=== PATIENT | female | born 1935 | race Caucasian/White ===

== ENCOUNTER → 2018-06-11 | Outpatient (CLI) | payer MEDICARE, OTHER | END | disposition home or self-care (01) | LOC: RADPV 12:06 | PROVIDERS: ATTEND Legal Medicine | DX: J18.9 Pneumonia, unspecified organism (principal); I70.0 Atherosclerosis of aorta; M25.561 Pain in right knee ==

== ENCOUNTER → 2018-07-23 | Outpatient (CLI) | payer MEDICARE, OTHER | END | disposition home or self-care (01) | LOC: RADPV 12:10 | PROVIDERS: ATTEND Legal Medicine | DX: I73.9 Peripheral vascular disease, unspecified (principal); M79.9 Soft tissue disorder, unspecified | CPT/HCPCS: 93925; 93970 ==

== ENCOUNTER 2019-01-24 10:40 | Emergency (ER) | payer MEDICARE, OTHER ==
[~2019-01-24] VITALS: Ht 152.4 cm; Wt 70.5 kg
[~2019-01-24 10:40] MED LIST: ALEN70TA10 PO; ASPI-1182 PO; DULO20CA30 PO; FURO20 PO; GABA-529 PO; KDUR10 PO; LOSA25TA41 PO; MACR100 PO; PRAV40TA4 PO; RANI150T7 PO; SIME125C81 PO
[2019-01-24] MEDS ORDERED: 0.9% SODIUM CHLORIDE 10 ML SYRINGE IVP PRN (11:30)
[2019-01-24] MEDS ORDERED: DOXYCYCLINE HYCLATE 100 MG in DEXTROSE 5%-WATER 100 ML IV ONE (11:45)
[2019-01-24 11:47] LABS: BASOPHILS % (AUTO) 0.9 % (0.0-2.0); EOSINOPHILS % (AUTO) 1.4 % (1.0-6.0); HEMATOCRIT 36.1 % (36-46); HEMOGLOBIN 11.8 g/dL (12.0-16.0); LYMPHOCYTES # (AUTO) 1.9 K/uL (1.0-4.8); LYMPHOCYTES % (AUTO) 30.8 % (22.0-44.0); MEAN CORPUSCULAR HEMOGLOBIN 31.6 pg (26.0-34.0); MEAN CORPUSCULAR HGB CONC 32.6 G/dL (31.0-37.0); MEAN CORPUSCULAR VOLUME 97 fL (80-100); MONOCYTES # (AUTO) 0.8 K/uL (0.1-1.0); MONOCYTES % (AUTO) 13.2 % (2.0-9.0); NEUTROPHILS # (AUTO) 3.4 K/uL (1.8-7.7); NEUTROPHILS % (AUTO) 53.7 % (40.0-70.0); PLATELET COUNT (AUTO) 261 K/uL (150-450); RED BLOOD CELL COUNT(AUTO) 3.72 MIL/uL (4.00-5.20); RED CELL DISTRIBUTION WIDTH 14.4 % (11.5-14.5)
[2019-01-24 11:56] LABS: APPEARANCE,URINE CLEAR (CLEAR); BILIRUBIN,URINE NEGATIVE (NEGATIVE); GLUCOSE, URINE (UA) NEGATIVE (NEGATIVE); KETONES,URINE NEGATIVE (NEGATIVE); LEUKOCYTE ESTERASE ,URINE NEGATIVE (NEGATIVE); NITRATE,URINE NEGATIVE (NEGATIVE); OCCULT BLOOD,URINE NEGATIVE (NEGATIVE); PROTEIN,URINE NEGATIVE (NEGATIVE); UROBILINOGEN,URINE 0.2 mg/dL (<=1.0)
[2019-01-24 12:02] LABS: PROTHROMBIN TIME 10.3 SEC (9.4-11.6)
[2019-01-24 12:15] LABS: CALCIUM, TOTAL 8.6 mg/dL (8.8-10.5); CREATININE 1.22 mg/dL (0.60-1.30); POTASSIUM 3.3 mmol/L (3.5-5.1)
[2019-01-24 12:19] LABS: ALBUMIN 3.5 g/dL (3.4-5.0); BILIRUBIN,TOTAL 0.5 mg/dL (0.1-1.0); TOTAL PROTEIN, SERUM 8.1 g/dL (6.4-8.2)
[2019-01-24] MEDS ORDERED: POTASSIUM CHLORIDE 20 MEQ ER TABLET PO ONE (12:30)
[2019-01-24 12:40] VITALS: BP 150/71
== END 2019-01-24 13:38 | disposition left against medical advice (07) ==
LOC: EMS 10:41
DX: L03.116 Cellulitis of left lower limb (principal); L03.115 Cellulitis of right lower limb; I11.9 Hypertensive heart disease without heart failure; F32.9 Major depressive disorder, single episode, unspecified; K21.9 Gastro-esophageal reflux disease without esophagitis; E78.00 Pure hypercholesterolemia, unspecified; Z79.82 Long term (current) use of aspirin; Z79.899 Other long term (current) drug therapy
CPT/HCPCS: 36415; 73590; 80053; 81003; 85025; 85610; 87040; 96365; 99285; J3490; J7060

== ENCOUNTER 2019-01-26 17:24 | Inpatient (IN) | payer MEDICARE, OTHER ==
[~2019-01-26] VITALS: Ht 152.4 cm; Wt 69.2 kg
[2019-01-26 20:10] VITALS: BP 158/70
[2019-01-26] MEDS ORDERED: IPRATROPIUM BROMIDE 0.5 MG/2.5 ML NEB SOLUTION NEB PRN (21:15)
[2019-01-26] MEDS ORDERED: ALBUTEROL SULFATE 2.5 MG/0.5 ML NEB SOLUTION NEB PRN (21:15)
[2019-01-26] MEDS ORDERED: ONDANSETRON HCL 4 MG/2 ML VIAL IVP PRN (21:15)
[2019-01-26] MEDS ORDERED: MAGNESIUM HYDROXIDE SUSPENSION 30 ML UDCUP PO PRN (21:15)
[2019-01-26] MEDS ORDERED: BISACODYL 10 MG RECTAL RECTAL SUPPOSITORY PR PRN (21:15)
[2019-01-26] MEDS ORDERED: LORazepam 0.5 MG TABLET PO PRN (21:30)
[2019-01-26] MEDS ORDERED: SODIUM CHLORIDE 0.9% 500 ML IV ONE (21:54)
[2019-01-26] MEDS: HEPARIN SODIUM,PORCINE 5,000 UNITS/ML VIAL SQ SCH (22:51)
[2019-01-26] MEDS: CefTRIAXone 1 GM/DEXTROSE 50 ML IV SCH (22:52)
[2019-01-26 23:10] VITALS: BP 145/63
[2019-01-27] MEDS: MELATONIN 3 MG TABLET PO PRN (00:53)
[2019-01-27 04:26] VITALS: BP 148/60
[2019-01-27] MEDS: RANITIDINE HCL 150 MG TABLET PO SCH (05:46)
[2019-01-27] MEDS: SIMETHICONE 80 MG CHEWABLE TABLET CHEW SCH (05:57)
[2019-01-27 06:43] LABS: BASOPHILS % (AUTO) 0.9 % (0.0-2.0); EOSINOPHILS % (AUTO) 2.1 % (1.0-6.0); HEMATOCRIT 31.7 % (36-46); HEMOGLOBIN 10.5 g/dL (12.0-16.0); LYMPHOCYTES # (AUTO) 1.9 K/uL (1.0-4.8); LYMPHOCYTES % (AUTO) 26.2 % (22.0-44.0); MEAN CORPUSCULAR HEMOGLOBIN 31.8 pg (26.0-34.0); MEAN CORPUSCULAR HGB CONC 33.2 G/dL (31.0-37.0); MEAN CORPUSCULAR VOLUME 96 fL (80-100); MONOCYTES # (AUTO) 0.9 K/uL (0.1-1.0); MONOCYTES % (AUTO) 12.4 % (2.0-9.0); NEUTROPHILS # (AUTO) 4.2 K/uL (1.8-7.7); NEUTROPHILS % (AUTO) 58.4 % (40.0-70.0); PLATELET COUNT (AUTO) 239 K/uL (150-450); RED CELL DISTRIBUTION WIDTH 13.7 % (11.5-14.5)
[2019-01-27 06:53] LABS: HEMOGLOBIN A1C 6.5 % (4.5-6.2)
[2019-01-27 07:02] LABS: LACTIC ACID 1.4 mmol/L (0.4-2.0)
[2019-01-27 07:05] LABS: CALCIUM, TOTAL 8.4 mg/dL (8.8-10.5); CHOL/HDL RATIO 1.9 (3.9-5.7); CREATININE 1.33 mg/dL (0.60-1.30); FREE T4 (FREE THYROXINE) 1.18 ng/dL (0.76-1.46); MAGNESIUM 1.9 mg/dL (1.80-2.40); POTASSIUM 3.6 mmol/L (3.5-5.1); THYROID STIMULATING HORMONE 5.48 uIU/mL (0.36-3.74)
[2019-01-27 07:29] VITALS: BP 147/69
[2019-01-27] MEDS: DULoxetine HCL 20 MG CAPSULE PO SCH (08:16)
[2019-01-27] MEDS: ASPIRIN 81 MG EC TABLET PO SCH (08:16)
[2019-01-27] MEDS: GABAPENTIN 100 MG CAPSULE PO SCH ×3 (08:16→20:43)
[2019-01-27] MEDS: FUROSEMIDE 20 MG TABLET PO SCH (08:16)
[2019-01-27] MEDS: POTASSIUM CHLORIDE 8 MEQ ER TABLET PO SCH (08:16)
[2019-01-27] MEDS: HEPARIN SODIUM,PORCINE 5,000 UNITS/ML VIAL SQ SCH ×2 (08:17→20:43)
[2019-01-27] MEDS ORDERED: LOSARTAN POTASSIUM 25 MG TABLET PO SCH (09:00)
[2019-01-27 11:28] VITALS: BP 147/70
[2019-01-27] MEDS ORDERED: INSULIN LISPRO 100 UNITS/ML SQ PRN (11:45)
[2019-01-27] MEDS ORDERED: DEXTROSE 50%-WATER 25 GM/50 ML SYRINGE IVP PRN (11:45)
[2019-01-27] MEDS ORDERED: LORazepam 0.5 MG TABLET PO PRN (15:30)
[2019-01-27 15:32] VITALS: BP 163/71
[2019-01-27 19:40] VITALS: BP 151/64
[2019-01-27] MEDS: CefTRIAXone 1 GM/DEXTROSE 50 ML IV SCH (22:10)
[2019-01-27 23:25] VITALS: BP_SYST 117; BP_SYST 150; BP_DIAS 65; BP_DIAS 71
[2019-01-28] VITALS (7 sets, daily range): BP systolic 114–187; BP diastolic 53–74
[2019-01-28] MEDS: LORazepam 1 MG TABLET PO PRN (05:18)
[2019-01-28] MEDS: RANITIDINE HCL 150 MG TABLET PO SCH (05:22)
[2019-01-28] MEDS: SIMETHICONE 80 MG CHEWABLE TABLET CHEW SCH (05:22)
[2019-01-28 06:32] LABS: BASOPHILS % (AUTO) 0.8 % (0.0-2.0); EOSINOPHILS % (AUTO) 2.2 % (1.0-6.0); HEMATOCRIT 33.4 % (36-46); LYMPHOCYTES # (AUTO) 1.6 K/uL (1.0-4.8); LYMPHOCYTES % (AUTO) 32.7 % (22.0-44.0); MEAN CORPUSCULAR HEMOGLOBIN 31.9 pg (26.0-34.0); MEAN CORPUSCULAR HGB CONC 33.1 G/dL (31.0-37.0); MEAN CORPUSCULAR VOLUME 97 fL (80-100); MONOCYTES # (AUTO) 0.7 K/uL (0.1-1.0); MONOCYTES % (AUTO) 13.7 % (2.0-9.0); NEUTROPHILS # (AUTO) 2.5 K/uL (1.8-7.7); NEUTROPHILS % (AUTO) 50.6 % (40.0-70.0); PLATELET COUNT (AUTO) 229 K/uL (150-450); RED BLOOD CELL COUNT(AUTO) 3.46 MIL/uL (4.00-5.20)
[2019-01-28 06:43] LABS: CALCIUM, TOTAL 8.9 mg/dL (8.8-10.5); CREATININE 1.18 mg/dL (0.60-1.30); POTASSIUM 3.8 mmol/L (3.5-5.1)
[2019-01-28] MEDS ORDERED: CloNIDine HCL 0.1 MG TABLET PO PRN (08:30)
[2019-01-28] MEDS: DULoxetine HCL 20 MG CAPSULE PO SCH (09:11)
[2019-01-28] MEDS: ASPIRIN 81 MG EC TABLET PO SCH (09:11)
[2019-01-28] MEDS: POTASSIUM CHLORIDE 8 MEQ ER TABLET PO SCH (09:11)
[2019-01-28] MEDS: HEPARIN SODIUM,PORCINE 5,000 UNITS/ML VIAL SQ SCH ×2 (09:11→20:34)
[2019-01-28] MEDS: GABAPENTIN 100 MG CAPSULE PO SCH ×3 (09:11→20:34)
[2019-01-28] MEDS: CARVEDILOL 3.125 MG TABLET PO SCH ×2 (09:11→20:34)
[2019-01-28] MEDS: FUROSEMIDE 20 MG TABLET PO SCH (09:11)
[2019-01-28] MEDS: LOSARTAN POTASSIUM 50 MG TABLET PO SCH (09:11)
[2019-01-28 12:07] LABS: GLUCOMETER DEV NAME(LOC) 6N.2; GLUCOSE,POINT OF CARE 128 MG/DL (70-110)
[2019-01-28 18:37] LABS: GLUCOMETER DEV NAME(LOC) 6N.2; GLUCOSE,POINT OF CARE 87 MG/DL (70-110)
[2019-01-28] MEDS: CeFAZolin 2 GM/DEXTROSE 50 ML IV SCH (20:34)
[2019-01-29 01:55] LABS: GLUCOMETER DEV NAME(LOC) 6N.2; GLUCOSE,POINT OF CARE 109 MG/DL (70-110)
[2019-01-29] MEDS: SIMETHICONE 80 MG CHEWABLE TABLET CHEW SCH (05:34)
[2019-01-29] MEDS: RANITIDINE HCL 150 MG TABLET PO SCH (05:35)
[2019-01-29 05:38] VITALS: BP 164/67
[2019-01-29 07:46] LABS: GLUCOMETER DEV NAME(LOC) 6N.2; GLUCOSE,POINT OF CARE 83 MG/DL (70-110)
[2019-01-29 07:47] LABS: BASOPHILS % (AUTO) 0.8 % (0.0-2.0); EOSINOPHILS % (AUTO) 2.9 % (1.0-6.0); HEMATOCRIT 33.4 % (36-46); HEMOGLOBIN 11.1 g/dL (12.0-16.0); LYMPHOCYTES # (AUTO) 2.2 K/uL (1.0-4.8); LYMPHOCYTES % (AUTO) 37.5 % (22.0-44.0); MEAN CORPUSCULAR HEMOGLOBIN 32.3 pg (26.0-34.0); MEAN CORPUSCULAR HGB CONC 33.3 G/dL (31.0-37.0); MEAN CORPUSCULAR VOLUME 97 fL (80-100); MONOCYTES # (AUTO) 0.8 K/uL (0.1-1.0); MONOCYTES % (AUTO) 14.1 % (2.0-9.0); NEUTROPHILS # (AUTO) 2.7 K/uL (1.8-7.7); NEUTROPHILS % (AUTO) 44.7 % (40.0-70.0); PLATELET COUNT (AUTO) 236 K/uL (150-450); RED BLOOD CELL COUNT(AUTO) 3.45 MIL/uL (4.00-5.20); RED CELL DISTRIBUTION WIDTH 13.9 % (11.5-14.5)
[2019-01-29] MEDS: LOSARTAN POTASSIUM 50 MG TABLET PO SCH (07:50)
[2019-01-29] MEDS: CeFAZolin 2 GM/DEXTROSE 50 ML IV SCH ×2 (07:50→19:54)
[2019-01-29] MEDS: FUROSEMIDE 20 MG TABLET PO SCH (07:50)
[2019-01-29] MEDS: HEPARIN SODIUM,PORCINE 5,000 UNITS/ML VIAL SQ SCH ×2 (07:51→19:54)
[2019-01-29] MEDS: CARVEDILOL 3.125 MG TABLET PO SCH (07:51)
[2019-01-29] MEDS: GABAPENTIN 100 MG CAPSULE PO SCH ×3 (07:51→19:54)
[2019-01-29] MEDS: ASPIRIN 81 MG EC TABLET PO SCH (07:51)
[2019-01-29] MEDS: POTASSIUM CHLORIDE 8 MEQ ER TABLET PO SCH (07:51)
[2019-01-29] MEDS: DULoxetine HCL 20 MG CAPSULE PO SCH (07:51)
[2019-01-29 08:01] LABS: CALCIUM, TOTAL 9.4 mg/dL (8.8-10.5); CREATININE 1.3 mg/dL (0.60-1.30); POTASSIUM 4.4 mmol/L (3.5-5.1)
[2019-01-29 08:03] VITALS: BP 99/58
[2019-01-29 11:55] VITALS: BP 108/55
[2019-01-29] MEDS: LORazepam 1 MG TABLET PO PRN (13:17)
[2019-01-29 14:51] LABS: GLUCOMETER DEV NAME(LOC) 6N.2; GLUCOSE,POINT OF CARE 107 MG/DL (70-110)
[2019-01-29 15:36] VITALS: BP 99/63
[2019-01-29 17:07] LABS: GLUCOMETER DEV NAME(LOC) 6N.2; GLUCOSE,POINT OF CARE 83 MG/DL (70-110)
[2019-01-29 20:09] VITALS: BP 114/52
[2019-01-29 20:56] LABS: GLUCOMETER DEV NAME(LOC) 4E.2; GLUCOSE,POINT OF CARE 117 MG/DL (70-110)
[2019-01-30] VITALS (7 sets, daily range): BP systolic 111–146; BP diastolic 62–73
[2019-01-30] MEDS: MELATONIN 3 MG TABLET PO PRN (00:39)
[2019-01-30] MEDS: CARVEDILOL 3.125 MG TABLET PO SCH ×3 (00:39→19:55)
[2019-01-30] MEDS: RANITIDINE HCL 150 MG TABLET PO SCH (05:50)
[2019-01-30] MEDS: SIMETHICONE 80 MG CHEWABLE TABLET CHEW SCH (06:10)
[2019-01-30 07:01] LABS: GLUCOMETER DEV NAME(LOC) 6N.2; GLUCOSE,POINT OF CARE 101 MG/DL (70-110)
[2019-01-30] MEDS: POTASSIUM CHLORIDE 8 MEQ ER TABLET PO SCH (08:42)
[2019-01-30] MEDS: GABAPENTIN 100 MG CAPSULE PO SCH ×3 (08:42→19:55)
[2019-01-30] MEDS: DULoxetine HCL 20 MG CAPSULE PO SCH (08:43)
[2019-01-30] MEDS: ASPIRIN 81 MG EC TABLET PO SCH (08:43)
[2019-01-30] MEDS: FUROSEMIDE 20 MG TABLET PO SCH (08:44)
[2019-01-30] MEDS: HEPARIN SODIUM,PORCINE 5,000 UNITS/ML VIAL SQ SCH ×2 (08:44→19:55)
[2019-01-30] MEDS: LOSARTAN POTASSIUM 50 MG TABLET PO SCH (08:44)
[2019-01-30] MEDS: CeFAZolin 2 GM/DEXTROSE 50 ML IV SCH ×2 (08:45→19:55)
[2019-01-30 10:24] LABS: BASOPHILS % (AUTO) 0.3 % (0.0-2.0); HEMATOCRIT 34.1 % (36-46); HEMOGLOBIN 11.3 g/dL (12.0-16.0); LYMPHOCYTES # (AUTO) 1.7 K/uL (1.0-4.8); LYMPHOCYTES % (AUTO) 31.5 % (22.0-44.0); MEAN CORPUSCULAR HEMOGLOBIN 32.2 pg (26.0-34.0); MEAN CORPUSCULAR VOLUME 97 fL (80-100); MONOCYTES # (AUTO) 0.5 K/uL (0.1-1.0); MONOCYTES % (AUTO) 9.7 % (2.0-9.0); NEUTROPHILS % (AUTO) 55.5 % (40.0-70.0); PLATELET COUNT (AUTO) 241 K/uL (150-450); RED CELL DISTRIBUTION WIDTH 13.9 % (11.5-14.5)
[2019-01-30 10:35] LABS: CALCIUM, TOTAL 8.9 mg/dL (8.8-10.5); CREATININE 1.34 mg/dL (0.60-1.30)
[2019-01-30 11:51] LABS: GLUCOMETER DEV NAME(LOC) 6N.2; GLUCOSE,POINT OF CARE 117 MG/DL (70-110)
[2019-01-30 15:59] LABS: APPEARANCE,URINE CLEAR (CLEAR); BILIRUBIN,URINE NEGATIVE (NEGATIVE); GLUCOSE, URINE (UA) NEGATIVE (NEGATIVE); KETONES,URINE NEGATIVE (NEGATIVE); LEUKOCYTE ESTERASE ,URINE NEGATIVE (NEGATIVE); NITRATE,URINE NEGATIVE (NEGATIVE); OCCULT BLOOD,URINE NEGATIVE (NEGATIVE); PH,URINE 6.5 (5.0-8.0); PROTEIN,URINE NEGATIVE (NEGATIVE); UROBILINOGEN,URINE 0.2 mg/dL (<=1.0)
[2019-01-30] MEDS: LORazepam 1 MG TABLET PO PRN (16:26)
[2019-01-30 19:36] LABS: GLUCOMETER DEV NAME(LOC) 6N.2; GLUCOSE,POINT OF CARE 116 MG/DL (70-110)
[2019-01-31] VITALS (7 sets, daily range): BP systolic 134–157; BP diastolic 56–90
[2019-01-31 06:11] LABS: ANION GAP 4 mmol/L (8-16); CALCIUM, TOTAL 8.5 mg/dL (8.8-10.5); CARBON DIOXIDE 32 mmol/L (22-29); CHLORIDE 104 mmol/L (98-107); CREATININE 1.97 mg/dL (0.60-1.30); GLOMERULAR FILTR. RATE CALC 24 mL/min (>60); GLUCOSE,RANDOM 99 mg/dL (70-110); POTASSIUM 4.6 mmol/L (3.5-5.1); SODIUM SERUM 140 mmol/L (136-145); UREA NITROGEN, BLOOD 28 mg/dL (7-18)
[2019-01-31] MEDS: SIMETHICONE 80 MG CHEWABLE TABLET CHEW SCH (07:11)
[2019-01-31] MEDS: RANITIDINE HCL 150 MG TABLET PO SCH (07:12)
[2019-01-31] MEDS: DULoxetine HCL 20 MG CAPSULE PO SCH (08:12)
[2019-01-31] MEDS: POTASSIUM CHLORIDE 8 MEQ ER TABLET PO SCH (08:12)
[2019-01-31] MEDS: FUROSEMIDE 20 MG TABLET PO SCH (08:12)
[2019-01-31] MEDS: ASPIRIN 81 MG EC TABLET PO SCH (08:12)
[2019-01-31] MEDS: GABAPENTIN 100 MG CAPSULE PO SCH ×3 (08:13→21:41)
[2019-01-31] MEDS: LOSARTAN POTASSIUM 50 MG TABLET PO SCH (08:13)
[2019-01-31] MEDS: CARVEDILOL 3.125 MG TABLET PO SCH (08:13)
[2019-01-31] MEDS: HEPARIN SODIUM,PORCINE 5,000 UNITS/ML VIAL SQ SCH ×2 (08:14→21:42)
[2019-01-31] MEDS: CeFAZolin 2 GM/DEXTROSE 50 ML IV SCH ×2 (09:08→21:43)
[2019-01-31 10:39] LABS: CREATINE KINASE, TOTAL ONLY < 7 U/L (26-192)
[2019-01-31] MEDS ORDERED: SLOWK8 PO (20:08)
[2019-01-31] MEDS: LORazepam 1 MG TABLET PO PRN (21:41)
[2019-01-31] MEDS: CARVEDILOL 6.25 MG TABLET PO SCH (21:42)
[2019-01-31 23:02] LABS: GLUCOMETER DEV NAME(LOC) 6N.2; GLUCOSE,POINT OF CARE 81 MG/DL (70-110)
[2019-01-31 23:02] LABS: GLUCOMETER DEV NAME(LOC) 6N.2; GLUCOSE,POINT OF CARE 118 MG/DL (70-110)
[2019-02-01 00:16] LABS: GLUCOMETER DEV NAME(LOC) 5S.1; GLUCOSE,POINT OF CARE 109 MG/DL (70-110)
[2019-02-01 00:18] VITALS: BP 147/68
[2019-02-01 04:47] VITALS: BP 140/72
[2019-02-01] MEDS: SIMETHICONE 80 MG CHEWABLE TABLET CHEW SCH (07:02)
[2019-02-01] MEDS: RANITIDINE HCL 150 MG TABLET PO SCH (07:03)
[2019-02-01 07:15] LABS: BASOPHILS % (AUTO) 0.6 % (0.0-2.0); EOSINOPHILS % (AUTO) 2.6 % (1.0-6.0); HEMATOCRIT 32.6 % (36-46); HEMOGLOBIN 10.7 g/dL (12.0-16.0); LYMPHOCYTES # (AUTO) 2.3 K/uL (1.0-4.8); LYMPHOCYTES % (AUTO) 41.2 % (22.0-44.0); MEAN CORPUSCULAR HEMOGLOBIN 31.9 pg (26.0-34.0); MEAN CORPUSCULAR HGB CONC 32.8 G/dL (31.0-37.0); MEAN CORPUSCULAR VOLUME 97 fL (80-100); MONOCYTES # (AUTO) 0.7 K/uL (0.1-1.0); MONOCYTES % (AUTO) 13.1 % (2.0-9.0); NEUTROPHILS # (AUTO) 2.3 K/uL (1.8-7.7); NEUTROPHILS % (AUTO) 42.5 % (40.0-70.0); PLATELET COUNT (AUTO) 258 K/uL (150-450); RED BLOOD CELL COUNT(AUTO) 3.36 MIL/uL (4.00-5.20); RED CELL DISTRIBUTION WIDTH 13.8 % (11.5-14.5)
[2019-02-01 07:19] VITALS: BP 143/62
[2019-02-01 07:46] LABS: CALCIUM, TOTAL 8.8 mg/dL (8.8-10.5); CREATININE 1.18 mg/dL (0.60-1.30); POTASSIUM 4.2 mmol/L (3.5-5.1)
[2019-02-01] MEDS: DULoxetine HCL 20 MG CAPSULE PO SCH (08:11)
[2019-02-01] MEDS: GABAPENTIN 100 MG CAPSULE PO SCH ×2 (08:11→17:28)
[2019-02-01] MEDS: FUROSEMIDE 20 MG TABLET PO SCH (08:11)
[2019-02-01] MEDS: CARVEDILOL 6.25 MG TABLET PO SCH (08:11)
[2019-02-01] MEDS: CeFAZolin 2 GM/DEXTROSE 50 ML IV SCH (08:11)
[2019-02-01] MEDS: POTASSIUM CHLORIDE 8 MEQ ER TABLET PO SCH (08:11)
[2019-02-01] MEDS: ASPIRIN 81 MG EC TABLET PO SCH (08:11)
[2019-02-01] MEDS: LORazepam 1 MG TABLET PO PRN (08:11)
[2019-02-01] MEDS: HEPARIN SODIUM,PORCINE 5,000 UNITS/ML VIAL SQ SCH (08:12)
[2019-02-01 11:34] VITALS: BP 118/84
[2019-02-01 15:34] VITALS: BP 124/80
[2019-02-01 21:26] LABS: GLUCOMETER DEV NAME(LOC) 5S.1; GLUCOSE,POINT OF CARE 104 MG/DL (70-110)
[2019-02-01 22:42] LABS: GLUCOMETER DEV NAME(LOC) 5N.2; GLUCOSE,POINT OF CARE 131 MG/DL (70-110)
[2019-02-01 22:42] LABS: GLUCOMETER DEV NAME(LOC) 5N.2; GLUCOSE,POINT OF CARE 139 MG/DL (70-110)
== END 2019-02-01 18:45 | DRG 602 ==
LOC: 4E 19:55 → 5S 01-31 16:10
PROVIDERS: ADMIT Internal Medicine Geriatric Medicine; ATTEND Internal Medicine Geriatric Medicine
DX: L03.116 Cellulitis of left lower limb (principal); N17.0 Acute kidney failure with tubular necrosis; I13.0 Hypertensive heart and chronic kidney disease with heart failure and stage 1 through stage 4 chronic kidney disease, or unspecified chronic kidney disease; N17.8 Other acute kidney failure; E78.5 Hyperlipidemia, unspecified; I25.10 Atherosclerotic heart disease of native coronary artery without angina pectoris; D64.9 Anemia, unspecified; F41.9 Anxiety disorder, unspecified; E83.42 Hypomagnesemia; E87.6 Hypokalemia; K21.9 Gastro-esophageal reflux disease without esophagitis; I87.8 Other specified disorders of veins; N18.3 Chronic kidney disease, stage 3 (moderate); M81.0 Age-related osteoporosis without current pathological fracture; E02 Subclinical iodine-deficiency hypothyroidism; Z95.5 Presence of coronary angioplasty implant and graft; F32.9 Major depressive disorder, single episode, unspecified; E11.22 Type 2 diabetes mellitus with diabetic chronic kidney disease; E87.8 Other disorders of electrolyte and fluid balance, not elsewhere classified; B95.61 Methicillin susceptible Staphylococcus aureus infection as the cause of diseases classified elsewhere; Z91.19 Patient's noncompliance with other medical treatment and regimen; I50.9 Heart failure, unspecified; Z79.899 Other long term (current) drug therapy
CPT/HCPCS: 83036; 83605; 83735; 84439; 84443; 87040; 87070; 87081; 87205; 93005; 93306; 97110; 97116; 97162; 97166; 97530; 97535; G0378; J0690; J0696; J1644; J2405; J7040

== ENCOUNTER 2019-05-31 09:56 | Emergency (ER) | payer MEDICARE, OTHER ==
[~2019-05-31] VITALS: Ht 154.9 cm; Wt 77.3 kg
[~2019-05-31 09:56] MED LIST changes: +ASPI-1111 PO; -ASPI-1182 PO; -KDUR10 PO; -LOSA25TA41 PO; +LOSA25TA71 PO; -MACR100 PO; +SLOWK8 PO
[2019-05-31] MEDS ORDERED: LISI-618 PO (11:42)
[2019-05-31] MEDS ORDERED: AMLO5TAB66 PO (11:42)
[2019-05-31] MEDS ORDERED: LEVO75 PO (11:42)
[2019-05-31] MEDS ORDERED: ARIP2TAB20 PO (11:42)
[2019-05-31] MEDS ORDERED: CARV3.1231 PO (11:42)
[2019-05-31] MEDS ORDERED: LIDOCAINE 5% TRANSDERMAL PATCH TD ONE (11:45)
[2019-05-31] MEDS ORDERED: CLOTRIMAZOLE 1% 15 GM CREAM TP ONE (12:15)
[2019-05-31] MEDS ORDERED: KETOROLAC TROMETHAMINE 30 MG/ML VIAL IM ONE (12:45)
[2019-05-31 13:22] VITALS: BP 123/71
== END 2019-05-31 14:01 | disposition home or self-care (01) ==
LOC: EMS 09:57
DX: S39.012A Strain of muscle, fascia and tendon of lower back, initial encounter (principal); S76.011A Strain of muscle, fascia and tendon of right hip, initial encounter; S76.811A Strain of other specified muscles, fascia and tendons at thigh level, right thigh, initial encounter; L30.4 Erythema intertrigo; E78.00 Pure hypercholesterolemia, unspecified; I11.9 Hypertensive heart disease without heart failure; K21.9 Gastro-esophageal reflux disease without esophagitis; M81.0 Age-related osteoporosis without current pathological fracture; F32.9 Major depressive disorder, single episode, unspecified; Z98.890 Other specified postprocedural states; Z79.899 Other long term (current) drug therapy; X50.9XXA Other and unspecified overexertion or strenuous movements or postures, initial encounter; Y93.89 Activity, other specified; Y92.89 Other specified places as the place of occurrence of the external cause; Y99.8 Other external cause status
CPT/HCPCS: 73502; 96372; 99283; J1885

== ENCOUNTER → 2019-06-02 | Outpatient (CLI) | payer MEDICARE, OTHER ==
[~2019-06-02] MED LIST changes: +AMLO5TAB66 PO; +ARIP2TAB20 PO; +CARV3.1231 PO; +LEVO75 PO; +LISI-618 PO
== END | disposition home or self-care (01) ==
LOC: RADPV 13:17
PROVIDERS: ATTEND Legal Medicine
DX: M16.0 Bilateral primary osteoarthritis of hip (principal); M85.88 Other specified disorders of bone density and structure, other site; C80.1 Malignant (primary) neoplasm, unspecified; M25.752 Osteophyte, left hip; M25.852 Other specified joint disorders, left hip
CPT/HCPCS: 73503